=== PATIENT | male | born 1965 | race Caucasian/White ===

== ENCOUNTER 2018-11-08 13:53 | Inpatient (IN) | payer MEDICAID, OTHER ==
[~2018-11-08] VITALS: Ht 170.2 cm; Wt 83.5 kg
[~2018-11-08 13:53] MED LIST: AMLO10TA80 PO; ATOR10TA PO; CINA30 PO; FOLI0.8T23 PO; LISI-604 PO; METO-385 PO; REN800 PO
[2018-11-08] MEDS ORDERED: DILTIAZEM HCL 125 MG in DEXT 5% WATER 100 ML IV ONE (14:15)
[2018-11-08] MEDS ORDERED: DILTIAZEM HCL 5MG/ML 5ML VIAL IV ONE ×3 (14:15→17:00)
[2018-11-08] MEDS ORDERED: ASPIRIN 81MG TABLET PO ONE (14:15)
[2018-11-08] MEDS ORDERED: DILTIAZEM HCL 125 MG in DEXT 5% WATER 100 ML IV NR (14:30)
[2018-11-08 15:11] LABS: CHLORIDE 102 mEq/L (98-107)
[2018-11-08 15:14] LABS: BASOPHILS % 1.3 % (0.0-2.0); EOSINOPHILS % 4.5 % (0.0-5.0); HEMATOCRIT. 29.4 % (42.0-52.0); HEMOGLOBIN. 9.6 g/dL (14.0-18.0); LYMPHOCYTES % 11.1 % (20.0-50.0); MEAN CORPUSCULAR HEMOGLOBIN 27.9 pg (28.0-32.0); MEAN CORPUSCULAR VOLUME 85.4 fL (80.0-94.0); MONOCYTES % 12.1 % (2.0-8.0); PLATELET 275 x1000/uL (130-400); RED BLOOD CELL COUNT 3.44 mill/uL (4.7-6.1); RED CELL DISTRIBUTION WIDTH 16.7 % (11.6-14.6)
[2018-11-08 15:18] LABS: ETHANOL BLOOD < 10 mg/dL
[2018-11-08] MEDS ORDERED: FUROSEMIDE 20MG/2ML VIAL IVP ONE (16:15)
[2018-11-08 20:30] VITALS: BP 202/88
[2018-11-08 21:00] VITALS: BP 202/88
[2018-11-08 22:00] VITALS: BP 189/86
[2018-11-09] VITALS (13 sets, daily range): BP systolic 144–203; BP diastolic 70–111
[2018-11-09] MEDS ORDERED: ACETAMINOPHEN 650MG/20.3ML UDC PO PRN (02:00)
[2018-11-09] MEDS: NIFEDIPINE XL 60MG TAB PO SCH (02:38)
[2018-11-09] MEDS: ASPIRIN 81MG TABLET PO SCH (02:38)
[2018-11-09] MEDS: ENOXAPARIN 30MG/0.3ML SYR SUBCUT SCH (02:39)
[2018-11-09] MEDS: HYDRALAZINE HCL 50MG TABLET PO SCH ×3 (05:52→22:49)
[2018-11-09] MEDS: PIPERACILLIN/TAZ 2.25G PREMIX 50 ML IV SCH ×2 (05:53→20:14)
[2018-11-09] MEDS: CLONIDINE 0.2MG TABLET PO SCH ×3 (05:53→22:50)
[2018-11-09] MEDS ORDERED: PIPERACILLIN/TAZOBACTAM 2.25 G in DEXTROSE 5% WATER 50 ML IV SCH (06:00)
[2018-11-09 06:27] LABS: BASOPHILS % 1.2 % (0.0-2.0); EOSINOPHILS % 5.5 % (0.0-5.0); HEMATOCRIT. 25.8 % (42.0-52.0); HEMOGLOBIN. 8.6 g/dL (14.0-18.0); MEAN CORPUSCULAR HEMOGLOBIN 28.3 pg (28.0-32.0); MEAN CORPUSCULAR VOLUME 85.2 fL (80.0-94.0); MEAN PLATELET VOLUME 8.8 fl (7.4-10.4); MONOCYTES % 9.6 % (2.0-8.0); NEUTROPHILS % 73.7 % (40.0-76.0); PLATELET 244 x1000/uL (130-400); RED BLOOD CELL COUNT 3.03 mill/uL (4.7-6.1); RED CELL DISTRIBUTION WIDTH 16.3 % (11.6-14.6)
[2018-11-09 07:02] LABS: CHLORIDE 104 mEq/L (98-107)
[2018-11-09 07:12] LABS: HDL CHOLESTEROL 51 mg/dL (40-59)
[2018-11-09 07:13] LABS: LDL CHOLESTEROL 60 mg/dL (5-100)
[2018-11-09] MEDS ORDERED: PNEUMOCOCCAL 23-VAL P-SAC VAC 0.5 ML IM ONE (08:00)
[2018-11-09] MEDS ORDERED: CLONIDINE 0.1MG TABLET PO PRN (08:45)
[2018-11-09] MEDS ORDERED: CARVEDILOL 6.25 MG TABLET PO SCH (09:00)
[2018-11-09] MEDS ORDERED: INFLUENZA VIRUS VACCINE(AFLURIA) 0.5ML SYR IM ONE (10:00)
[2018-11-09] MEDS: AMIODARONE HCL 200 MG TABLET PO SCH ×2 (13:10→21:40)
[2018-11-09] MEDS: METOPROLOL TARTRATE 50MG TABLET PO SCH ×2 (13:11→21:37)
[2018-11-09] MEDS: ALBUTEROL (0.083%) 2.5MG/3ML NEB HHN SCH ×2 (13:19→20:29)
[2018-11-10] VITALS (10 sets, daily range): BP systolic 126–151; BP diastolic 54–75
[2018-11-10] MEDS: ALBUTEROL (0.083%) 2.5MG/3ML NEB HHN SCH ×3 (00:54→12:54)
[2018-11-10 05:42] LABS: CHLORIDE 103 mEq/L (98-107)
[2018-11-10 06:00] LABS: BASOPHILS % 1.6 % (0.0-2.0); HEMATOCRIT. 27.6 % (42.0-52.0); LYMPHOCYTES % 13.8 % (20.0-50.0); MEAN CORPUSCULAR HEMOGLOBIN 27.8 pg (28.0-32.0); MEAN CORPUSCULAR VOLUME 85.1 fL (80.0-94.0); MEAN PLATELET VOLUME 8.7 fl (7.4-10.4); MONOCYTES % 12.3 % (2.0-8.0); NEUTROPHILS % 63.3 % (40.0-76.0); PLATELET 276 x1000/uL (130-400); RED BLOOD CELL COUNT 3.25 mill/uL (4.7-6.1)
[2018-11-10] MEDS: PIPERACILLIN/TAZ 2.25G PREMIX 50 ML IV SCH ×2 (06:14→18:00)
[2018-11-10] MEDS: HYDRALAZINE HCL 50MG TABLET PO SCH ×2 (06:15→16:17)
[2018-11-10] MEDS: CLONIDINE 0.2MG TABLET PO SCH ×2 (06:15→16:17)
[2018-11-10] MEDS ORDERED: INFLUENZA VIRUS VACCINE(AFLURIA) 0.5ML SYR IM ONE (06:31)
[2018-11-10] MEDS: ENOXAPARIN 30MG/0.3ML SYR SUBCUT SCH (08:48)
[2018-11-10] MEDS: ASPIRIN 81MG TABLET PO SCH (08:48)
[2018-11-10] MEDS: METOPROLOL TARTRATE 50MG TABLET PO SCH (10:28)
[2018-11-10] MEDS: NIFEDIPINE XL 60MG TAB PO SCH (10:28)
[2018-11-10] MEDS: AMIODARONE HCL 200 MG TABLET PO SCH (10:28)
[2018-11-10] MEDS ORDERED: APIXABAN 5 MG TABLET PO SCH (17:00)
== END 2018-11-10 18:40 | disposition home or self-care (01) | DRG 194 ==
LOC: ER 13:53 → 5EST 16:30 → ENRESERV 20:05
PROVIDERS: ADMIT Internal Medicine; ATTEND Internal Medicine
PROC: 5A1D70Z Performance of Urinary Filtration, Intermittent, Less than 6 Hours Per Day (ICD-10-PCS; 2018-11-09)
PROC: 3E02340 Introduction of Influenza Vaccine into Muscle, Percutaneous Approach (ICD-10-PCS; principal; 2018-11-10)
PROC: 3E0234Z Introduction of Serum, Toxoid and Vaccine into Muscle, Percutaneous Approach (ICD-10-PCS; 2018-11-10)
DX: I13.2 Hypertensive heart and chronic kidney disease with heart failure and with stage 5 chronic kidney disease, or end stage renal disease (principal); E11.22 Type 2 diabetes mellitus with diabetic chronic kidney disease; N18.6 End stage renal disease; I48.92 Unspecified atrial flutter; N25.81 Secondary hyperparathyroidism of renal origin; I47.1 Supraventricular tachycardia; I48.91 Unspecified atrial fibrillation; I50.33 Acute on chronic diastolic (congestive) heart failure; I16.0 Hypertensive urgency; R06.03 Acute respiratory distress; E78.5 Hyperlipidemia, unspecified; D64.9 Anemia, unspecified; I34.0 Nonrheumatic mitral (valve) insufficiency; Z91.19 Patient's noncompliance with other medical treatment and regimen; Z99.2 Dependence on renal dialysis; I25.2 Old myocardial infarction; Z79.899 Other long term (current) drug therapy; Z23 Encounter for immunization
CPT/HCPCS: 36415; 71045; 80061; 83880; 84443; 84484; 90686; 90732; 93005; 93306; 94640; 96365; 96366; 96375; 99291; A4565; G0482; J1650; J1940; J2543; J3490; J7050; J7060; J7611

== ENCOUNTER 2018-12-26 08:44 | Inpatient (IN) | payer OTHER ==
[~2018-12-26] VITALS: Ht 172.7 cm; Wt 82.1 kg
[~2018-12-26 08:44] MED LIST changes: -LISI-604 PO
[2018-12-26 11:08] LABS: BASOPHILS % 1.4 % (0.0-2.0); EOSINOPHILS % 4.1 % (0.0-5.0); HEMATOCRIT. 22.2 % (42.0-52.0); HEMOGLOBIN. 7.2 g/dL (14.0-18.0); LYMPHOCYTES % 9.2 % (20.0-50.0); MEAN CORPUSCULAR HEMOGLOBIN 28.5 pg (28.0-32.0); MEAN CORPUSCULAR VOLUME 88.1 fL (80.0-94.0); MEAN PLATELET VOLUME 8.3 fl (7.4-10.4); MONOCYTES % 9.7 % (2.0-8.0); NEUTROPHILS % 75.6 % (40.0-76.0); PLATELET 281 x1000/uL (130-400); RED BLOOD CELL COUNT 2.52 mill/uL (4.7-6.1); RED CELL DISTRIBUTION WIDTH 17.3 % (11.6-14.6)
[2018-12-26 11:14] LABS: PROTHROMBIN TIME 9.9 sec (9.1-11.1)
[2018-12-26 11:19] LABS: CHLORIDE 105 mEq/L (98-107)
[2018-12-26 16:19] VITALS: BP 181/95
[2018-12-26 16:27] VITALS: BP 188/95
[2018-12-26] MEDS ORDERED: CLONIDINE 0.1MG TABLET PO PRN (18:45)
[2018-12-26] MEDS ORDERED: ONDANSETRON HCL 4MG/2ML INJ IV PRN (18:45)
[2018-12-26] MEDS ORDERED: DEXTROSE 50% WATER 50ML SYRINGE IV PRN (19:00)
[2018-12-26 20:00] VITALS: BP 176/83
[2018-12-26] MEDS: METOPROLOL TARTRATE 25MG TABLET PO SCH (20:57)
[2018-12-26] MEDS: INSULIN LISPRO 100 UNITS/ML SUBCUT SCH (21:00)
[2018-12-26] MEDS: BLOOD SUGAR DIAGNOSTIC STRIP TEST SCH (21:09)
[2018-12-27] VITALS (11 sets, daily range): BP systolic 169–218; BP diastolic 86–119
[2018-12-27] MEDS: BLOOD SUGAR DIAGNOSTIC STRIP TEST SCH ×3 (06:56→17:20)
[2018-12-27] MEDS: INSULIN LISPRO 100 UNITS/ML SUBCUT SCH ×3 (07:50→17:50)
[2018-12-27] MEDS ORDERED: AMLODIPINE 10MG TABLET PO SCH (09:00)
[2018-12-27 10:31] LABS: BASOPHILS % 1.1 % (0.0-2.0); EOSINOPHILS % 5.3 % (0.0-5.0); HEMATOCRIT. 24.9 % (42.0-52.0); HEMOGLOBIN. 8.1 g/dL (14.0-18.0); LYMPHOCYTES % 14.2 % (20.0-50.0); MEAN PLATELET VOLUME 8.5 fl (7.4-10.4); MONOCYTES % 10.5 % (2.0-8.0); NEUTROPHILS % 68.9 % (40.0-76.0); PLATELET 264 x1000/uL (130-400); RED CELL DISTRIBUTION WIDTH 17.5 % (11.6-14.6)
[2018-12-27] MEDS: METOPROLOL TARTRATE 25MG TABLET PO SCH (19:11)
[2018-12-28] VITALS: BP 169/86
[2018-12-28 04:00] VITALS: BP 169/86
[2018-12-28 06:44] LABS: HEMATOCRIT. 27.7 % (42.0-52.0); HEMOGLOBIN. 9.1 g/dL (14.0-18.0); MEAN CORPUSCULAR HEMOGLOBIN 28.5 pg (28.0-32.0); MEAN PLATELET VOLUME 8.4 fl (7.4-10.4); PLATELET 272 x1000/uL (130-400); RED BLOOD CELL COUNT 3.18 mill/uL (4.7-6.1); RED CELL DISTRIBUTION WIDTH 17.2 % (11.6-14.6)
[2018-12-28 10:27] LABS: PLATELET ESTIMATE NORMAL
== END 2018-12-28 06:00 | disposition home or self-care (01) | DRG 254 ==
LOC: ER 08:44 → 6WST 13:09 → EDBEDREQ 13:12 → ENRESERV 13:49
PROVIDERS: ADMIT Internal Medicine; ATTEND Internal Medicine
PROC: 5A1D70Z Performance of Urinary Filtration, Intermittent, Less than 6 Hours Per Day (ICD-10-PCS; 2018-12-26)
PROC: 30233N1 Transfusion of Nonautologous Red Blood Cells into Peripheral Vein, Percutaneous Approach (ICD-10-PCS; principal; 2018-12-27)
DX: K64.9 Unspecified hemorrhoids (principal); I13.2 Hypertensive heart and chronic kidney disease with heart failure and with stage 5 chronic kidney disease, or end stage renal disease; E11.22 Type 2 diabetes mellitus with diabetic chronic kidney disease; E46 Unspecified protein-calorie malnutrition; E87.5 Hyperkalemia; D62 Acute posthemorrhagic anemia; I48.91 Unspecified atrial fibrillation; N18.6 End stage renal disease; D63.1 Anemia in chronic kidney disease; E78.5 Hyperlipidemia, unspecified; I34.0 Nonrheumatic mitral (valve) insufficiency; I50.32 Chronic diastolic (congestive) heart failure; Z79.899 Other long term (current) drug therapy; Z87.891 Personal history of nicotine dependence; Z95.1 Presence of aortocoronary bypass graft; Z99.2 Dependence on renal dialysis; Z68.27 Body mass index [BMI] 27.0-27.9, adult
CPT/HCPCS: 36415; 71045; 74176; 80048; 82962; 83540; 83550; 83880; 84484; 86850; 86900; 86920; 93005; 96374; 99291; P9016

== ENCOUNTER 2019-03-12 11:09 | Inpatient (IN) | payer OTHER ==
[~2019-03-12] VITALS: Ht 172.7 cm; Wt 81.7 kg
[2019-03-12] VITALS (24 sets, daily range): BP systolic 125–189; BP diastolic 59–90
[2019-03-12] MEDS ORDERED: KETOROLAC 30MG/ML VIAL IV STA (12:10)
[2019-03-12 12:36] LABS: BASOPHILS % 2.3 % (0.0-2.0); HEMATOCRIT. 38.3 % (42.0-52.0); HEMOGLOBIN. 12.8 g/dL (14.0-18.0); LYMPHOCYTES % 15.1 % (20.0-50.0); MEAN CORPUSCULAR HEMOGLOBIN 28.2 pg (28.0-32.0); MEAN CORPUSCULAR VOLUME 84.4 fL (80.0-94.0); MEAN PLATELET VOLUME 8.1 fl (7.4-10.4); MONOCYTES % 9.7 % (2.0-8.0); NEUTROPHILS % 67.9 % (40.0-76.0); PLATELET 183 x1000/uL (130-400); RED BLOOD CELL COUNT 4.54 mill/uL (4.7-6.1); RED CELL DISTRIBUTION WIDTH 17.4 % (11.6-14.6)
[2019-03-12 12:43] LABS: CHLORIDE 96 mEq/L (98-107)
[2019-03-12 12:44] LABS: INR 0.9; PROTHROMBIN TIME 9.2 sec (9.6-11.0)
[2019-03-12] MEDS ORDERED: LEVETIRACETAM 500MG PREMIX 100 ML IV ONE (13:30)
[2019-03-12] MEDS ORDERED: DEXAMETHASONE 10 MG/ML VIAL IV ONE (13:30)
[2019-03-12] MEDS ORDERED: NICARDIPINE 100 MG in SODIUM CHLORIDE 0.9% 60 ML IV PRN ×3 (15:45→20:00)
[2019-03-12] MEDS ORDERED: IPRATROPIUM/ALBUTEROL 0.5-3(2.5)MG/3ML NEB INH PRN (16:15)
[2019-03-12] MEDS ORDERED: DEXTROSE 50% WATER 50ML SYRINGE IV PRN (16:15)
[2019-03-12] MEDS ORDERED: ONDANSETRON HCL 4MG/2ML INJ IV PRN (16:15)
[2019-03-12] MEDS ORDERED: MORPHINE SULFATE 2 MG/ML CPJ (NOT FOR IM USE) IV PRN (17:15)
[2019-03-12] MEDS ORDERED: DEXAMETHASONE 4MG/ML 1ML VIAL IV SCH (18:00)
[2019-03-12] MEDS: INSULIN LISPRO 100 UNITS/ML SUBCUT SCH ×2 (18:20→21:09)
[2019-03-12] MEDS: DEXT 5%/LACTATED RINGERS 1,000 ML IV SCH (18:37)
[2019-03-12] MEDS: DEXAMETHASONE 4MG/ML 1ML VIAL IV SCH ×2 (18:51→23:23)
[2019-03-12] MEDS ORDERED: MORPHINE SULFATE 2 MG/ML CPJ (NOT FOR IM USE) IV NR (19:15)
[2019-03-12] MEDS: BLOOD SUGAR DIAGNOSTIC STRIP TEST SCH (21:03)
[2019-03-12] MEDS: LEVETIRACETAM 500 MG in SODIUM CHLORIDE 0.9% 100 ML IV SCH (21:09)
[2019-03-12] MEDS ORDERED: HYDRALAZINE 20MG/ML VIAL IV SCH ×2 (21:15)
[2019-03-12] MEDS: HYDRALAZINE 20MG/ML VIAL IV PRN (21:26)
[2019-03-12] MEDS ORDERED: FAMOTIDINE 20MG/2ML VIAL IV SCH (22:00)
[2019-03-12] MEDS: NICARDIPINE 100 MG in SODIUM CHLORIDE 0.9% 60 ML IV PRN (22:08)
[2019-03-13] VITALS (94 sets, daily range): BP systolic 113–160; BP diastolic 55–84
[2019-03-13 00:03] LABS: CREATINE KINASE 111 IU/L (39-308)
[2019-03-13 00:04] LABS: CREATINE KINASE MB FRACTION < 1.0 ng/mL (0.5-3.6)
[2019-03-13] MEDS: HYDRALAZINE 20MG/ML VIAL IV PRN ×2 (03:07→12:12)
[2019-03-13] MEDS: NICARDIPINE 100 MG in SODIUM CHLORIDE 0.9% 60 ML IV PRN ×2 (03:08→13:18)
[2019-03-13] MEDS: MORPHINE SULFATE 2 MG/ML CPJ (NOT FOR IM USE) IV PRN (03:09)
[2019-03-13 05:10] LABS: HEMATOCRIT. 36.8 % (42.0-52.0); HEMOGLOBIN. 12.1 g/dL (14.0-18.0); MEAN CORPUSCULAR HEMOGLOBIN 27.6 pg (28.0-32.0); MEAN CORPUSCULAR VOLUME 84.1 fL (80.0-94.0); MEAN PLATELET VOLUME 8.6 fl (7.4-10.4); PLATELET 209 x1000/uL (130-400); RED BLOOD CELL COUNT 4.38 mill/uL (4.7-6.1); RED CELL DISTRIBUTION WIDTH 17.6 % (11.6-14.6)
[2019-03-13 05:15] LABS: CHLORIDE 95 mEq/L (98-107)
[2019-03-13 05:30] LABS: LDL CHOLESTEROL 84 mg/dL (5-100)
[2019-03-13 05:31] LABS: CREATINE KINASE 94 IU/L (39-308); CREATINE KINASE MB FRACTION < 1.0 ng/mL (0.5-3.6)
[2019-03-13 05:32] LABS: HDL CHOLESTEROL 68 mg/dL (40-59); T4 FREE 1.06 ng/dL (0.76-1.46)
[2019-03-13] MEDS: BLOOD SUGAR DIAGNOSTIC STRIP TEST SCH ×4 (05:39→21:13)
[2019-03-13] MEDS: DEXAMETHASONE 4MG/ML 1ML VIAL IV SCH ×3 (05:44→17:12)
[2019-03-13] MEDS: INSULIN LISPRO 100 UNITS/ML SUBCUT SCH ×4 (06:16→21:23)
[2019-03-13 08:50] LABS: PLATELET ESTIMATE NORMAL
[2019-03-13] MEDS ORDERED: LEVETIRACETAM 500MG PREMIX 100 ML IV SCH (09:00)
[2019-03-13] MEDS ORDERED: FAMOTIDINE 20MG/2ML VIAL IV SCH (09:00)
[2019-03-13] MEDS: LEVETIRACETAM 500 MG in SODIUM CHLORIDE 0.9% 100 ML IV SCH (09:03)
[2019-03-13] MEDS ORDERED: MEDICATION NOT ON FORMULARY EA (Metoprolol Succinate 50 MG) PO SCH (11:45)
[2019-03-13] MEDS ORDERED: MEDICATION NOT ON FORMULARY EA (Sevelamer Hcl (Renagel) 800 MG) PO SCH (12:00)
[2019-03-13] MEDS: SEVELAMER CARBONATE 800 MG TABLET PO SCH ×2 (12:11→17:12)
[2019-03-13] MEDS: AMLODIPINE 10MG TABLET PO SCH (12:12)
[2019-03-13] MEDS: FAMOTIDINE 20MG/2ML VIAL IV SCH (12:12)
[2019-03-13 12:34] LABS: CREATINE KINASE MB FRACTION 1.1 ng/mL (0.5-3.6)
[2019-03-13] MEDS: LOSARTAN POTASSIUM 50 MG TABLET PO SCH (13:18)
[2019-03-13] MEDS: METOPROLOL TARTRATE 50MG TABLET PO SCH ×2 (13:18→21:22)
[2019-03-13] MEDS: DEXT 5%/LACTATED RINGERS 1,000 ML IV SCH (17:12)
[2019-03-13] MEDS: ATORVASTATIN CALCIUM 10MG TABLET PO SCH (21:21)
[2019-03-13] MEDS: LEVETIRACETAM 500MG in SODIUM CHLORIDE 0.9% 100ML IV SCH (21:46)
[2019-03-14] VITALS (64 sets, daily range): BP systolic 72–167; BP diastolic 44–83
[2019-03-14] MEDS: NICARDIPINE 100 MG in SODIUM CHLORIDE 0.9% 60 ML IV PRN (00:20)
[2019-03-14] MEDS: DEXAMETHASONE 4MG/ML 1ML VIAL IV SCH ×5 (00:20→23:51)
[2019-03-14] MEDS: BLOOD SUGAR DIAGNOSTIC STRIP TEST SCH ×4 (05:46→21:05)
[2019-03-14 06:02] LABS: HEMOGLOBIN. 11.2 g/dL (14.0-18.0); MEAN CORPUSCULAR HEMOGLOBIN 27.9 pg (28.0-32.0); MEAN PLATELET VOLUME 8.7 fl (7.4-10.4); PLATELET 197 x1000/uL (130-400); RED BLOOD CELL COUNT 4.01 mill/uL (4.7-6.1); RED CELL DISTRIBUTION WIDTH 17.9 % (11.6-14.6)
[2019-03-14] MEDS: INSULIN LISPRO 100 UNITS/ML SUBCUT SCH ×4 (06:17→21:00)
[2019-03-14] MEDS: SEVELAMER CARBONATE 800 MG TABLET PO SCH ×3 (06:45→17:31)
[2019-03-14 10:23] LABS: PLATELET ESTIMATE NORMAL
[2019-03-14] MEDS: FOLIC ACID/VITAMIN B COMP W-C TABLET PO SCH (11:31)
[2019-03-14] MEDS: METOPROLOL TARTRATE 50MG TABLET PO SCH ×2 (11:32→21:05)
[2019-03-14] MEDS: LOSARTAN POTASSIUM 50 MG TABLET PO SCH (11:32)
[2019-03-14] MEDS: AMLODIPINE 10MG TABLET PO SCH (11:32)
[2019-03-14] MEDS: FAMOTIDINE 20MG/2ML VIAL IV SCH (11:33)
[2019-03-14] MEDS: CINACALCET HCL 30MG TABLET PO SCH (11:33)
[2019-03-14] MEDS: LEVETIRACETAM 500MG in SODIUM CHLORIDE 0.9% 100ML IV SCH ×2 (12:07→21:06)
[2019-03-14] MEDS: HYDRALAZINE 20MG/ML VIAL IV PRN ×2 (14:51→23:57)
[2019-03-14] MEDS: ATORVASTATIN CALCIUM 10MG TABLET PO SCH (20:54)
[2019-03-15] VITALS (12 sets, daily range): BP systolic 159–177; BP diastolic 72–150
[2019-03-15] MEDS: DEXAMETHASONE 4MG/ML 1ML VIAL IV SCH ×4 (05:21→23:29)
[2019-03-15 06:21] LABS: HEMATOCRIT. 35.5 % (42.0-52.0); HEMOGLOBIN. 11.8 g/dL (14.0-18.0); MEAN CORPUSCULAR HEMOGLOBIN 27.8 pg (28.0-32.0); MEAN CORPUSCULAR VOLUME 83.9 fL (80.0-94.0); MEAN PLATELET VOLUME 8.6 fl (7.4-10.4); PLATELET 193 x1000/uL (130-400); RED BLOOD CELL COUNT 4.23 mill/uL (4.7-6.1); RED CELL DISTRIBUTION WIDTH 17.4 % (11.6-14.6)
[2019-03-15] MEDS: INSULIN LISPRO 100 UNITS/ML SUBCUT SCH ×4 (08:00→21:00)
[2019-03-15] MEDS: BLOOD SUGAR DIAGNOSTIC STRIP TEST SCH ×4 (08:08→21:00)
[2019-03-15] MEDS: SEVELAMER CARBONATE 800 MG TABLET PO SCH ×3 (08:12→18:00)
[2019-03-15] MEDS: FOLIC ACID/VITAMIN B COMP W-C TABLET PO SCH (09:00)
[2019-03-15] MEDS: AMLODIPINE 10MG TABLET PO SCH (09:00)
[2019-03-15] MEDS: CINACALCET HCL 30MG TABLET PO SCH (09:00)
[2019-03-15] MEDS: LOSARTAN POTASSIUM 50 MG TABLET PO SCH (09:01)
[2019-03-15] MEDS: FAMOTIDINE 20MG/2ML VIAL IV SCH (09:01)
[2019-03-15] MEDS: METOPROLOL TARTRATE 50MG TABLET PO SCH ×2 (09:01→21:03)
[2019-03-15] MEDS: LEVETIRACETAM 500MG in SODIUM CHLORIDE 0.9% 100ML IV SCH ×2 (09:08→21:37)
[2019-03-15] MEDS ORDERED: FUROSEMIDE 40MG/4ML VIAL IVP SCH (10:00)
[2019-03-15] MEDS ORDERED: ACETAMINOPHEN 325MG TABLET PO PRN (10:00)
[2019-03-15 10:43] LABS: PLATELET ESTIMATE NORMAL
[2019-03-15] MEDS: HYDRALAZINE 20MG/ML VIAL IV PRN (12:40)
[2019-03-15] MEDS: CLONIDINE 0.1MG TABLET PO SCH ×2 (14:00→21:47)
[2019-03-15] MEDS ORDERED: SODIUM POLYSTYRENE SULFONATE 15 G/60 ML BOT PO SCH (15:00)
[2019-03-15] MEDS: HYDRALAZINE HCL 50MG TABLET PO SCH ×2 (15:19→21:03)
[2019-03-15] MEDS: ATORVASTATIN CALCIUM 10MG TABLET PO SCH (21:03)
[2019-03-15] MEDS: MORPHINE SULFATE 2 MG/ML CPJ (NOT FOR IM USE) IV PRN (21:46)
[2019-03-16] VITALS (11 sets, daily range): BP systolic 141–168; BP diastolic 67–93
[2019-03-16 05:50] LABS: HEMATOCRIT. 35.3 % (42.0-52.0); HEMOGLOBIN. 11.8 g/dL (14.0-18.0); MEAN CORPUSCULAR HEMOGLOBIN 28.1 pg (28.0-32.0); MEAN CORPUSCULAR VOLUME 83.9 fL (80.0-94.0); PLATELET 190 x1000/uL (130-400)
[2019-03-16] MEDS: HYDRALAZINE HCL 50MG TABLET PO SCH (06:09)
[2019-03-16] MEDS: DEXAMETHASONE 4MG/ML 1ML VIAL IV SCH ×3 (06:09→17:52)
[2019-03-16] MEDS: CLONIDINE 0.1MG TABLET PO SCH ×2 (06:12→14:01)
[2019-03-16] MEDS: BLOOD SUGAR DIAGNOSTIC STRIP TEST SCH ×3 (07:39→17:51)
[2019-03-16] MEDS: INSULIN LISPRO 100 UNITS/ML SUBCUT SCH ×3 (07:40→17:52)
[2019-03-16] MEDS: FAMOTIDINE 20MG/2ML VIAL IV SCH (08:06)
[2019-03-16] MEDS: SEVELAMER CARBONATE 800 MG TABLET PO SCH ×3 (08:06→17:52)
[2019-03-16] MEDS: CINACALCET HCL 30MG TABLET PO SCH (08:07)
[2019-03-16] MEDS: AMLODIPINE 10MG TABLET PO SCH (08:07)
[2019-03-16] MEDS: METOPROLOL TARTRATE 50MG TABLET PO SCH (08:07)
[2019-03-16] MEDS: FOLIC ACID/VITAMIN B COMP W-C TABLET PO SCH (08:07)
[2019-03-16] MEDS ORDERED: LOSARTAN POTASSIUM 100 MG TABLET PO SCH (09:00)
[2019-03-16] MEDS: LEVETIRACETAM 500MG in SODIUM CHLORIDE 0.9% 100ML IV SCH (09:44)
[2019-03-16] MEDS ORDERED: DOCUSATE SODIUM 100MG CAPSULE PO SCH (12:13)
[2019-03-16] MEDS ORDERED: LACTULOSE 20G/30ML UDC PO NR (12:13)
[2019-03-16] MEDS ORDERED: HYDRALAZINE HCL 100MG TABLET PO SCH (14:00)
[2019-03-16] MEDS: MORPHINE SULFATE 2 MG/ML CPJ (NOT FOR IM USE) IV PRN (14:09)
[2019-03-16 18:19] LABS: PLATELET ESTIMATE NORMAL
== END 2019-03-16 20:03 | disposition home or self-care (01) | DRG 44 ==
LOC: ER 11:17 → MICUSO 14:12 → ENRESERV 17:43 → 5EST 03-14 15:00
PROVIDERS: ADMIT Internal Medicine; ATTEND Internal Medicine
PROC: 02HV33Z Insertion of Infusion Device into Superior Vena Cava, Percutaneous Approach (ICD-10-PCS; 2019-03-12)
PROC: B5181ZA Fluoroscopy of Superior Vena Cava using Low Osmolar Contrast, Guidance (ICD-10-PCS; 2019-03-12)
PROC: B548ZZA Ultrasonography of Superior Vena Cava, Guidance (ICD-10-PCS; 2019-03-12)
PROC: 5A1D70Z Performance of Urinary Filtration, Intermittent, Less than 6 Hours Per Day (ICD-10-PCS; principal; 2019-03-15)
DX: I62.01 Nontraumatic acute subdural hemorrhage (principal); I13.2 Hypertensive heart and chronic kidney disease with heart failure and with stage 5 chronic kidney disease, or end stage renal disease; D68.59 Other primary thrombophilia; E11.22 Type 2 diabetes mellitus with diabetic chronic kidney disease; N18.6 End stage renal disease; E87.5 Hyperkalemia; I48.91 Unspecified atrial fibrillation; I50.9 Heart failure, unspecified; D64.9 Anemia, unspecified; E78.5 Hyperlipidemia, unspecified; K21.9 Gastro-esophageal reflux disease without esophagitis; N25.81 Secondary hyperparathyroidism of renal origin; R40.2410 Glasgow coma scale score 13-15, unspecified time; Z99.2 Dependence on renal dialysis; Z79.84 Long term (current) use of oral hypoglycemic drugs; Z79.899 Other long term (current) drug therapy
CPT/HCPCS: 36415; 36569; 36573; 71045; 80048; 80051; 80061; 82550; 82553; 82962; 84439; 84443; 84484; 93005; 93970; 96365; 96375; 99285; C1725; J0360; J1100; J1815; J1885; J1953; J2270; J2405; J3490; J7040; J7050